=== PATIENT | female | born 1955 | race Caucasian/White ===

== ENCOUNTER → 2019-02-23 | Day surgery (SDC) | payer OTHER, MEDICARE ==
--- NOTE | 2019-02-26 12:01 | OP ---
DATE OF OPERATION: 02/23/2019 PREOPERATIVE DIAGNOSIS: Left axillary adenopathy. POSTOPERATIVE DIAGNOSIS: Left axillary adenopathy. PROCEDURE: Left ultrasound-guided axillary node core biopsy with clip placement. ANESTHESIA: Local. ATTENDING SURGEON: Rambo Jeter MD ESTIMATED BLOOD LOSS: Minimal. COMPLICATIONS: None. PROCEDURE: Patient was made aware of the risks and benefits of the procedure and consented. She was placed in a supine position. Under sterile conditions with 1% lidocaine for local anesthesia, a small armando was made in the skin. Using a 13-gauge suction biopsy device via inferolateral approach under ultrasound guidance, multiple cores were obtained and submitted to Pathology. Likewise under ultrasound guidance, an open coil HydroMARK clip was placed into the biopsy region. Well tolerated by patient. Steri-Strip and sterile bandage was applied. Will contact her with the results. RAMBO JETER M.D. [id number]
--- NOTE | 2019-02-28 15:56 | PATH ---
Surgical Pathology Report Patient Name: [facility]. Rec. #: [id number] /Age/Gender: 1955 (Age: 63) / F Account: [id number] Location: [facility] Taken: 02/23/2019 Received: 02/23/2019 Reported: 02/28/2019 Physicians: Raven Croft M.D. Specimen(s) Received LEFT AXILLARY LYMPH NODE CORE BIOPSY Clinical History left axillary lymph node biopsy Final Diagnosis LYMPH NODE, LEFT AXILLARY, CORE BIOPSY: METASTATIC CARCINOMA, COMPATIBLE WITH MAMMARY ORIGIN, EXTENSIVELY INVOLVING LYMPH NODE. (SEE NOTE). Note: Immunohistochemical stains performed at [facility] [place], [place] ([id number]) show the following results: The carcinoma is positive for AE 1/3, CK-7, CYNDI-3 and ER while negative for CK-20, SC, mammaglobin, GCDFP-15 and Her2. This immunoprofile is compatible with origin from a mammary primary. Correlation with clinical and radiologic findings is suggested. Case discussed with Dr. Kenton Cruz on 02/28/19. Results of ER, SC, Her2 (IHC) & Ki-67 studies performed at [facility] [place], [place] ([id number]) are as follows: ER (clone [id number] mouse monoclonal antibody by [employer]): ~60 % nuclear staining with moderate to weak intensity (positive). SC (clone16 mouse monoclonal antibody by [employer]): 0 % nuclear staining (negative). Her2 IHC (EP3 from [employer], formerly known as [id number], using [employer] Polymer Refine detection kit): 0 (negative). Ki-67: 80% (high proliferative index). Positive and negative controls (internal if applicable) show appropriate results. Formalin fixation and cold ischemic times are within current ASCO/CAP recommendations for ER, SC and Her2 testing. Electronically Signed Pippa Byrnes M.D. Gross Description Received in formalin labeled "left axillary lymph node," is a 2.0 x 1.4 x 0.3 cm aggregate of multiple winslow-yellow, irregular to cylindrical portions of fibroadipose tissue. The formalin is filtered and the specimen is entirely submitted in one cassette. Time to formalin fixation: Not given (presumed immediate) Total formalin fixation time: Approximately 6 hours 02/23/2019 [facility]02/23/2019
== END | disposition home or self-care (01) ==
LOC: FRADUS-SUR 12:27
PROVIDERS: ATTEND Surgery Surgical Oncology
PROC: 07B63ZX Excision of Left Axillary Lymphatic, Percutaneous Approach, Diagnostic (ICD-10-PCS; principal; 2019-02-23)
PROC: BH47ZZZ Ultrasonography of Upper Extremity (ICD-10-PCS; 2019-02-23)
DX: C77.3 Secondary and unspecified malignant neoplasm of axilla and upper limb lymph nodes (principal); R59.9 Enlarged lymph nodes, unspecified
CPT/HCPCS: 38505; 76942-TC; 88305-TC; A4648

== ENCOUNTER 2023-01-26 08:19 | Inpatient (IN) | payer OTHER, MEDICARE ==
[2023-01-17 16:08] VITALS: BMI 27.3
[~2023-01-26 08:19] MED LIST: MAG HYDROX/AL HYDROX/SIMETH 30 ML UNIT-DOSE CUP PO PRN; MAGNESIUM HYDROX 2400MG/30ML ORAL SUSPENSION 30 ML CUP PO PRN; ONDANSETRON 4 MG/2 ML VIAL IVPUSH PRN
[2023-01-26] MEDS ORDERED: TRANEXAMIC ACID 1000 MG/10 ML VIAL IVPUSH ONE (10:00)
[2023-01-26] MEDS ORDERED: oxyCODONE HCL 5 MG TABLET PO PRN (10:10)
[2023-01-26] MEDS ORDERED: ACETAMINOPHEN 1000 MG/100 ML BAG IVPB ONE (10:10)
[2023-01-26] MEDS ORDERED: ONDANSETRON 4 MG/2 ML VIAL IVPUSH PRN (10:10)
[2023-01-26] MEDS ORDERED: MIDAZOLAM HCL 2 MG/2 ML SINGLE DOSE VIAL ONE ×3 (10:24→12:59)
[2023-01-26] MEDS ORDERED: BUPIVACAINE HCL/PF 2.5 MG/ML - 30 ML VIAL IJ ONE (10:24)
[2023-01-26] MEDS ORDERED: FENTANYL CITRATE/PF 50 MCG/ML VIAL ONE (10:24)
[2023-01-26] MEDS ORDERED: BUPIVACAINE LIPOSOME/PF (EXPAREL) 266 MG/20 ML VIAL ONE (10:24)
[2023-01-26] MEDS ORDERED: KETOROLAC TROMETHAMINE 30 MG/1 ML VIAL IVPUSH SCH ×2 (10:30→21:00)
[2023-01-26] MEDS ORDERED: PROPOFOL 40 ML ONE (12:51)
[2023-01-26] MEDS ORDERED: ONDANSETRON 4 MG/2 ML VIAL ONE (13:36)
[2023-01-26] MEDS ORDERED: ceFAZolin SODIUM 1 GM VIAL ONE (13:36)
[2023-01-26] MEDS ORDERED: DEXAMETHASONE SOD PHOSPHATE 4 MG/1 ML VIAL ONE (13:36)
[2023-01-26] MEDS ORDERED: TRANEXAMIC ACID 1000 MG/10 ML VIAL ONE (13:36)
[2023-01-26] MEDS ORDERED: KETOROLAC TROMETHAMINE 30 MG/1 ML VIAL ONE ×2 (13:36→14:40)
[2023-01-26] MEDS ORDERED: ACETAMINOPHEN INJECTION 100 ML IVPB ONE (15:19)
[2023-01-26 15:43] VITALS: RESP 18
[2023-01-26] MEDS: SODIUM CHLORIDE 1,000 ML IV SCH (16:59)
[2023-01-26] MEDS: CELECOXIB 100 MG CAPSULE PO SCH ×2 (17:00→21:15)
[2023-01-26] MEDS: FAMOTIDINE 20 MG TABLET PO SCH ×2 (17:02→21:15)
[2023-01-26] MEDS: SENNOSIDES/DOCUSATE COMBO (SENNA PLUS) TABLET (UD) PO SCH ×2 (17:02→21:15)
[2023-01-26] MEDS: MULTIVITAMINS (DAILY MVI) TABLET (FP) PO SCH (17:02)
[2023-01-26] MEDS: LACTATED RINGERS SOLUTION 1,000 ML IV SCH (17:03)
[2023-01-26] MEDS: CEFAZOLIN 1 GM in DEXTROSE 5%-WATER - 50 ML IVPB SCH (19:41)
[2023-01-26] MEDS: ASPIRIN 81 MG CHEWABLE TABLETS PO SCH (21:15)
[2023-01-26] MEDS ORDERED: ACETAMINOPHEN 1000 MG/100 ML BAG IVPB SCH (22:00)
[2023-01-26] MEDS ORDERED: TAMOXIFEN CITRATE 10 MG TABLET PO SCH (22:00)
[2023-01-26] MEDS: ACETAMINOPHEN 1000 MG/100 ML BAG IVPB SCH (22:07)
[2023-01-27] MEDS: ACETAMINOPHEN 1000 MG/100 ML BAG IVPB SCH ×2 (06:12→15:32)
[2023-01-27] MEDS: CEFAZOLIN 1 GM in DEXTROSE 5%-WATER - 50 ML IVPB SCH ×2 (06:14→12:09)
[2023-01-27] MEDS ORDERED: LEVOTHYROXINE NA 100 MCG TABLET (FP) PO SCH (07:00)
[2023-01-27] MEDS: SODIUM CHLORIDE 1,000 ML IV SCH (08:25)
[2023-01-27] MEDS: oxyCODONE HCL 5 MG TABLET PO PRN ×2 (09:03→13:41)
[2023-01-27] MEDS: ASPIRIN 81 MG CHEWABLE TABLETS PO SCH (09:03)
[2023-01-27] MEDS: CELECOXIB 100 MG CAPSULE PO SCH (09:03)
[2023-01-27] MEDS: FAMOTIDINE 20 MG TABLET PO SCH (09:04)
[2023-01-27] MEDS: MULTIVITAMINS (DAILY MVI) TABLET (FP) PO SCH (09:04)
[2023-01-27] MEDS: SENNOSIDES/DOCUSATE COMBO (SENNA PLUS) TABLET (UD) PO SCH (09:05)
[2023-01-27] MEDS ORDERED: DEXAMETHASONE 4 MG TABLET (FP) PO ONE (10:00)
[2023-01-27] MEDS: LACTATED RINGERS SOLUTION 1,000 ML IV SCH (12:09)
[2023-01-27 12:13] VITALS: BP 147/62; PULSE 64; TEMP 98.2
== END 2023-01-27 15:31 | disposition home or self-care (01) | DRG 470 ==
LOC: FM/S 08:19
PROVIDERS: ADMIT Orthopaedic Surgery; ATTEND Orthopaedic Surgery
PROC: 0SRD0N9 Replacement of Left Knee Joint with Patellofemoral Synthetic Substitute, Cemented, Open Approach (ICD-10-PCS; principal; 2023-01-26 13:04)
DX: M17.12 Unilateral primary osteoarthritis, left knee (principal); E03.9 Hypothyroidism, unspecified
CPT/HCPCS: 73560-TC-LT-FY; 94760; 97010-GP; 97116-GP; 97162-GP; C1889

== ENCOUNTER 2024-04-11 06:19 | Day surgery (SDC) | payer OTHER, MEDICARE ==
[2024-04-04 13:32] VITALS: BMI 26.9
[2024-04-11] MEDS ORDERED: ONDANSETRON 4 MG/2 ML VIAL IVPUSH PRN ×2 (07:02→09:34)
[2024-04-11] MEDS ORDERED: MIDAZOLAM HCL 2 MG/2 ML SINGLE DOSE VIAL ONE (07:08)
[2024-04-11] MEDS ORDERED: PROPOFOL 20 ML ONE ×4 (07:09→08:37)
[2024-04-11] MEDS ORDERED: SUCCINYLCHOLINE CHLORIDE 200 MG/10 ML SYRINGE ONE (07:09)
[2024-04-11] MEDS ORDERED: BUPIVACAINE LIPOSOME/PF (EXPAREL) 266 MG/20 ML VIAL ONE (07:20)
[2024-04-11] MEDS ORDERED: BUPIVACAINE HCL/PF 2.5 MG/ML - 30 ML VIAL IJ ONE (07:20)
[2024-04-11] MEDS ORDERED: BUPIVACAINE HCL/PF 0.5% (5 MG/ML) 30 ML VIAL IJ ONE (07:20)
[2024-04-11] MEDS ORDERED: TRANEXAMIC ACID 1000 MG/10 ML VIAL ONE (07:51)
[2024-04-11] MEDS ORDERED: MAG HYDROX/AL HYDROX/SIMETH 30 ML UNIT-DOSE CUP PO PRN (09:34)
[2024-04-11] MEDS ORDERED: MAGNESIUM HYDROX 2400MG/30ML ORAL SUSPENSION 30 ML CUP PO PRN (09:34)
[2024-04-11] MEDS ORDERED: traMADol HCL 50 MG TABLET PO PRN (09:44)
[2024-04-11] MEDS: ACETAMINOPHEN 1000 MG/100 ML BAG IVPB SCH (10:24)
[2024-04-11] MEDS: LACTATED RINGERS SOLUTION 1,000 ML IV SCH (10:25)
[2024-04-11] MEDS: CEFAZOLIN 2 GM in DEXTROSE 5%-WATER - 50 ML IVPB ONE (12:38)
[2024-04-11] MEDS: SENNOSIDES/DOCUSATE COMBO (SENNA PLUS) TABLET (UD) PO SCH (13:02)
[2024-04-11] MEDS: FAMOTIDINE 20 MG TABLET PO SCH (13:02)
[2024-04-11] MEDS: DEXAMETHASONE 4 MG TABLET (FP) PO SCH (13:03)
[2024-04-11] MEDS: CEFAZOLIN SODIUM 2 GM in DEXTROSE 5%-WATER 100 ML IVPB SCH (17:15)
[2024-04-11] MEDS: ACETAMINOPHEN 500 MG TABLET (FP) PO SCH (17:16)
[2024-04-11] MEDS: ASPIRIN 81 MG CHEWABLE TABLETS PO SCH (22:24)
[2024-04-11] MEDS: TAMOXIFEN CITRATE 10 MG TABLET PO SCH (22:24)
[2024-04-12] MEDS: LEVOTHYROXINE NA 112 MCG TABLET (FP) PO SCH (06:34)
[2024-04-12] MEDS ORDERED: TRANEXAMIC ACID 1000 MG/10 ML VIAL IVPB ONE (08:07)
[2024-04-12] MEDS: TRANEXAMIC ACID - 1,000 MG in SODIUM CHLORIDE 50 ML IVPB ONE (08:58)
[2024-04-12 12:32] VITALS: BP 122/73; PULSE 79; RESP 19; TEMP 98.5
[2024-04-12] MEDS ORDERED: TAMOXIFEN CITRATE 10 MG TABLET PO SCH (22:00)
== END 2024-04-12 12:34 | disposition home or self-care (01) ==
LOC: FASUSAT 06:19 → FM/S 10:43 → FASUSAT 04-12 12:34
PROVIDERS: ATTEND Orthopaedic Surgery
PROC: 0SW Lower Joints, Revision (ICD-10-PCS; principal; 2024-04-11 08:04)
DX: M22.42 Chondromalacia patellae, left knee (principal); M25.562 Pain in left knee
CPT/HCPCS: 73560-TC-LT-FY; 94760; 97010-GP; 97116-GP; 97162-GP; C1776; J0131